=== PATIENT | female | born 2000 | race African-American/Black ===

== ENCOUNTER 2021-08-22 12:35 | Emergency (ER) | payer OTHER ==
[~2021-08-22] VITALS: Ht 162.6 cm; Wt 86.4 kg
[2021-08-22] MEDS ORDERED: IBUP80TA PO (17:09)
[2021-08-22 17:22] VITALS: BP 122/76
== END 2021-08-22 17:24 | disposition home or self-care (01) ==
LOC: M ED 12:35
DX: M26.601 Right temporomandibular joint disorder, unspecified (principal)